=== PATIENT | male | born 1940 | race Caucasian/White ===

== ENCOUNTER 2020-01-09 21:32 | Emergency (ER) | payer MEDICARE, OTHER ==
[~2020-01-09] VITALS: Ht 177.8 cm; Wt 91.3 kg
[2020-01-09] MEDS ORDERED: LUTE2000 PO (21:48)
[2020-01-09] MEDS ORDERED: FENO160T10 PO (21:48)
[2020-01-09] MEDS ORDERED: FLOM0.4C39 PO (21:48)
[2020-01-09] MEDS ORDERED: ELIQ2.5T PO (21:48)
[2020-01-09] MEDS ORDERED: LOPR1TAB6 PO (21:48)
[2020-01-09] MEDS ORDERED: TRUL0.5I SC (21:48)
[2020-01-09] MEDS ORDERED: NEXI40CA PO (21:48)
[2020-01-09] MEDS ORDERED: vitamin D PO (21:48)
[2020-01-09] MEDS ORDERED: GNP250TA9 PO (21:48)
[2020-01-09] MEDS ORDERED: GLIP5TAB8 PO (21:48)
[2020-01-09] MEDS ORDERED: PANT40TA29 PO (21:48)
[2020-01-09] MEDS ORDERED: ALLO10TA PO (21:48)
--- NOTE | 2020-01-09 23:11 | REPVR ---
PROCEDURE INFORMATION: Exam: CT Head Without Contrast Exam date and time: 01/09/2020 10:47 PM Age: 79 years old Clinical indication: Dizziness; Additional info: Ting TECHNIQUE: Imaging protocol: Computed tomography of the head without contrast. Radiation optimization: All CT scans at this facility use at least one of these dose optimization techniques: automated exposure control; mA and/or kV adjustment per patient size (includes targeted exams where dose is matched to clinical indication); or iterative reconstruction. COMPARISON: CT Head without contrast 2016-01-31 11:42 FINDINGS: Brain: Diffuse mild cerebral age related volume loss. Mild patchy low attenuation in the white matter compatible with mild chronic small vessel ischemic disease. No midline shift, mass, fluid collection, or evidence of hemorrhage. Ventricles: Ventricular enlargement proportional to volume loss. Bones/joints: Unremarkable. No acute fracture. Sinuses: Visualized sinuses are unremarkable. No fluid levels. Mastoid air cells: Visualized mastoid air cells are well aerated. Soft tissues: Unremarkable. IMPRESSION: Mild involutional changes, no acute intracranial abnormality. Electronically signed by: Orville Willis On 01/09/2020 23:11:08 PM
[2020-01-10 00:34] LABS: BASO % 0.3 % (0.0-1.0); EOS # 0.1 10^3/uL (0.0-0.5); EOS % 1.1 % (0.0-3.0); HEMATOCRIT 41.8 % (42.0-52.0); LYMPH # 1.6 10^3/uL (1.5-5.0); LYMPH % 16.4 % (24.0-44.0); MEAN CORPUSCULAR HEMOGLOBIN 29.9 pg (27.0-33.0); MEAN CORPUSCULAR HGB CONC 33.5 g/dl (32.0-36.5); MEAN CORPUSCULAR VOLUME 89.1 fl (80.0-96.0); MONO # 0.7 10^3/uL (0.0-0.8); MONO % 6.8 % (0.0-5.0); NEUTROPHILS # 7.5 10^3/uL (1.5-8.5); NEUTROPHILS % 74.9 % (36.0-66.0); PLATELET COUNT, AUTOMATED 212 10^3/uL (150-450); RED BLOOD COUNT 4.69 10^6/uL (4.30-6.10)
[2020-01-10] MEDS ORDERED: MECLIZINE 25 MG TABLET PO ONE (01:15)
[2020-01-10 01:35] LABS: BLOOD UREA NITROGEN 39 MG/DL (7-18); CALCIUM LEVEL 9.3 MG/DL (8.8-10.2); CARBON DIOXIDE LEVEL 24 MEQ/L (21-32); CHLORIDE LEVEL 107 MEQ/L (98-107); CK-MB VALUE MASS 2.4 NG/ML (<3.6); CPK CREATINE PHOSPHOKINASE 61 U/L (39-308); CREATININE FOR GFR 2.16 MG/DL (0.70-1.30); GLOMERULAR FILTRATION RATE 31.6 (>42); GLUCOSE, FASTING 132 MG/DL (70-100); MB/CK RELATIVE INDEX 3.93 (< OR =4); POTASSIUM SERUM 4.3 MEQ/L (3.5-5.1); SODIUM LEVEL 138 MEQ/L (136-145); TROPONIN I < 0.02 NG/ML (< 0.10)
[2020-01-10] MEDS ORDERED: MECL1TAB31 PO (02:09)
[2020-01-10 03:00] VITALS: BP 137/76
--- NOTE | 2020-01-26 16:52 | ECGEPIP ---
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
== END 2020-01-10 03:14 | disposition home or self-care (01) ==
LOC: M ED 21:32
DX: R42 Dizziness and giddiness (principal); I11.9 Hypertensive heart disease without heart failure; I48.91 Unspecified atrial fibrillation; E11.9 Type 2 diabetes mellitus without complications; E78.5 Hyperlipidemia, unspecified; K21.9 Gastro-esophageal reflux disease without esophagitis; R01.1 Cardiac murmur, unspecified; N40.0 Benign prostatic hyperplasia without lower urinary tract symptoms; N28.9 Disorder of kidney and ureter, unspecified; Z95.5 Presence of coronary angioplasty implant and graft; I48.92 Unspecified atrial flutter; Z95.0 Presence of cardiac pacemaker

== ENCOUNTER 2021-09-08 01:10 | Inpatient (IN) | payer MEDICARE, OTHER ==
[~2021-09-08] VITALS: Ht 177.8 cm; Wt 80.5 kg
[~2021-09-08 01:10] MED LIST: ALLO10TA PO; ELIQ2.5T PO; FENO160T10 PO; FLOM0.4C39 PO; GLIP5TAB8 PO; GNP250TA9 PO; LOPR1TAB6 PO; LUTE2000 PO; MECL1TAB31 PO; NEXI40CA PO; NYST1POW9 TOP; PANT40TA29 PO; PLAV1TAB2 PO; TRUL0.5I SC; vitamin D PO
[2021-09-08 02:16] LABS: BASO # 0.1 10^3/uL (0.0-0.2); BASO % 0.4 % (0.0-1.0); EOS # 0.1 10^3/uL (0.0-0.5); EOS % 0.3 % (0.0-3.0); HEMATOCRIT 47.3 % (42.0-52.0); HEMOGLOBIN 14.6 g/dl (13.5-17.5); LYMPH # 1.7 10^3/uL (1.5-5.0); LYMPH % 9.6 % (24.0-44.0); MEAN CORPUSCULAR HEMOGLOBIN 27.9 pg (27.0-33.0); MEAN CORPUSCULAR HGB CONC 30.9 g/dl (32.0-36.5); MEAN CORPUSCULAR VOLUME 90.3 fl (80.0-96.0); MONO % 11.5 % (2.0-8.0); NEUTROPHILS # 13.6 10^3/uL (1.5-8.5); NEUTROPHILS % 77.5 % (36.0-66.0); PLATELET COUNT, AUTOMATED 200 10^3/uL (150-450); RED BLOOD COUNT 5.24 10^6/uL (4.30-6.10); WHITE BLOOD COUNT 17.5 10^3/uL (4.0-10.0)
[2021-09-08 02:41] LABS: ALBUMIN 2.2 GM/DL (3.2-5.2); BILIRUBIN,DIRECT 0.8 MG/DL (0.0-0.2); BILIRUBIN,TOTAL 1.3 MG/DL (0.2-1.0); CALCIUM LEVEL 8.5 MG/DL (8.8-10.2); CREATININE FOR GFR 1.92 MG/DL (0.70-1.30); GLOMERULAR FILTRATION RATE 36.1 (>42); POTASSIUM SERUM 5.7 MEQ/L (3.5-5.1); TOTAL PROTEIN 5.9 GM/DL (6.4-8.2)
[2021-09-08 02:46] LABS: CK-MB VALUE MASS < 1.0 NG/ML (<3.6); CPK CREATINE PHOSPHOKINASE 381 U/L (39-308); MB/CK RELATIVE INDEX 0.26 (< OR =4)
[2021-09-08] MEDS ORDERED: ONDANSETRON 4MG/2ML VIAL IV ONE (04:35)
[2021-09-08] MEDS ORDERED: MORPHINE 4 MG/ML 1ML VIAL/SYRINGE IV ONE (04:35)
[2021-09-08 05:15] LABS: BASO % 0.2 % (0.0-1.0); EOS % 0.2 % (0.0-3.0); HEMATOCRIT 41.3 % (42.0-52.0); LYMPH # 1.4 10^3/uL (1.5-5.0); MEAN CORPUSCULAR HEMOGLOBIN 27.5 pg (27.0-33.0); MEAN CORPUSCULAR HGB CONC 31.5 g/dl (32.0-36.5); MEAN CORPUSCULAR VOLUME 87.3 fl (80.0-96.0); MONO % 9.4 % (2.0-8.0); NEUTROPHILS # 14.5 10^3/uL (1.5-8.5); NEUTROPHILS % 81.6 % (36.0-66.0); PLATELET COUNT, AUTOMATED 210 10^3/uL (150-450); RED BLOOD COUNT 4.73 10^6/uL (4.30-6.10); WHITE BLOOD COUNT 17.7 10^3/uL (4.0-10.0)
[2021-09-08] MEDS ORDERED: cefTRIAXone SOD 1 GM in D5W MINI-BAG PLUS 50 ML IV ONE ×2 (05:20→08:00)
[2021-09-08] MEDS ORDERED: NS 1,000 ML IV ONE (05:20)
[2021-09-08 05:41] LABS: ALBUMIN 2.1 GM/DL (3.2-5.2); BILIRUBIN,TOTAL 1.4 MG/DL (0.2-1.0); CALCIUM LEVEL 8.6 MG/DL (8.8-10.2); CREATININE FOR GFR 1.74 MG/DL (0.70-1.30); GLOMERULAR FILTRATION RATE 40.5 (>42); MONO # 1.7 10^3/uL (0.0-0.8); POTASSIUM SERUM 5.3 MEQ/L (3.5-5.1); TOTAL PROTEIN 5.7 GM/DL (6.4-8.2)
[2021-09-08] MEDS ORDERED: HumaLOG INSULIN (NovoLOG) PER UNIT SC SCH (06:00)
[2021-09-08] MEDS ORDERED: METO1TAB87 PO (06:20)
[2021-09-08] MEDS ORDERED: SIMV20TA22 PO (06:20)
[2021-09-08] MEDS ORDERED: HOME MED LIST COMPLETE! XX SCH (06:25)
[2021-09-08] MEDS ORDERED: NS 1,000 ML IV SCH ×2 (06:50→22:40)
[2021-09-08] MEDS ORDERED: THIAMINE 200MG 2ML VIAL IM ONE (07:00)
[2021-09-08] MEDS ORDERED: DEXTROSE 50% 50 ML SYRINGE IV PRN (07:10)
[2021-09-08] MEDS ORDERED: ALBUTEROL SULFATE 2.5 MG/0.5 ML INH NEB SOLN NEB PRN (07:10)
[2021-09-08] MEDS ORDERED: GLUCOSE 4GM CHEW TABLET PO PRN (07:10)
[2021-09-08] MEDS ORDERED: GLUCAGON INJ 1MG VIAL SC PRN (07:10)
[2021-09-08 09:22] VITALS: BP 119/65
[2021-09-08] MEDS ORDERED: cefTRIAXone SOD 1 GM in D5W MINI-BAG PLUS 50 ML IV SCH (10:00)
[2021-09-08 10:52] LABS: APPEARANCE, URINE HAZY (CLEAR); BACTERIA, URINE AUTO NEGATIVE (NEGATIVE); BILIRUBIN, URINE AUTO NEGATIVE (NEGATIVE); BLOOD, URINE BLOOD NEGATIVE (NEGATIVE); COLOR, URINE AMBER (YELLOW); GLUCOSE, URINE (UA) AUTO NEGATIVE (NEGATIVE); KETONE, URINE AUTO NEGATIVE (NEGATIVE); LEUKOCYTE ESTERASE, URINE AUTO NEGATIVE (NEGATIVE); MUCUS, URINE SMALL (NEGATIVE); NITRITE, URINE AUTO NEGATIVE (NEGATIVE); PROTEIN, URINE AUTO NEGATIVE (NEGATIVE); RBC, URINE AUTO 2 /HPF (0-3); SPECIFIC GRAVITY URINE AUTO 1.023 (1.002-1.035); SQUAMOUS EPITHELIAL CELL UR AU 0 /HPF (0-6); UROBILINOGEN, URINE AUTO 0.2 mg/dL (0.0-2.0); WBC, URINE AUTO 2 /HPF (0-3)
[2021-09-08] MEDS: CLOPIDOGREL 75 MG TAB PO SCH (11:27)
[2021-09-08] MEDS: BISACODYL 10 MG SUPP PR SCH ×2 (11:29→22:02)
[2021-09-08] MEDS: LACTULOSE 20 GM/30 ML SYRUP UD PO SCH ×3 (11:30→22:09)
[2021-09-08] MEDS: HumaLOG INSULIN (NovoLOG) PER UNIT SC SCH ×2 (12:00→17:30)
[2021-09-08 14:43] VITALS: BP 132/61
[2021-09-08 15:00] VITALS: BP 141/57
[2021-09-08 20:25] VITALS: BP 103/68
[2021-09-08] MEDS ORDERED: ONDANSETRON 4MG/2ML VIAL IV PRN (21:25)
[2021-09-08] MEDS ORDERED: LORazepam 2 MG TAB PO PRN (21:25)
[2021-09-08 21:46] VITALS: BP 104/68
[2021-09-08] MEDS: THIAMINE 100 MG TAB PO SCH (22:10)
[2021-09-08] MEDS: NYSTATIN 100,000 UNITS/GM TOPICAL PWD 15 GM TOP SCH (22:10)
[2021-09-08] MEDS: HYDROMORPHONE HCL 0.5 MG/ 0.5 ML SYRINGE (J1170 PER 1) IV PRN (22:12)
[2021-09-08 22:27] LABS: MAGNESIUM LEVEL 2.5 MG/DL (1.8-2.4)
[2021-09-08] MEDS ORDERED: SODIUM CHLORIDE 0.9% 1000ML IV ONE (22:35)
[2021-09-08 23:48] VITALS: BP 119/64
[2021-09-09] VITALS (12 sets, daily range): BP systolic 115–138; BP diastolic 57–89
[2021-09-09] MEDS ORDERED: RAMELTEON 8 MG TAB (ROZEREM) PO PRN
[2021-09-09] MEDS ORDERED: MORPHINE 4 MG/ML 1ML VIAL/SYRINGE IV ONE
[2021-09-09] MEDS ORDERED: CAPSAICIN 0.025% CR 60 GM TOP PRN
[2021-09-09] MEDS ORDERED: PROCHLORPERAZINE 10MG/2ML VIAL (J0780 PER 1) IV PRN (00:05)
[2021-09-09] MEDS: LIDOCAINE 5% (LIDODERM) PATCH TD SCH ×2 (00:21→21:01)
[2021-09-09] MEDS ORDERED: SODIUM CHLORIDE 0.9% 1000ML IV ONE ×2 (00:35→01:00)
[2021-09-09] MEDS ORDERED: PIPERACILLIN/TAZOBACTAM SOD 2.25 GM in D5W MINI-BAG PLUS 50 ML IV SCH (00:35)
[2021-09-09] MEDS ORDERED: ACETAMINOPHEN *IV* 650 MG in IV 1 EA IV ONE (02:00)
[2021-09-09] MEDS ORDERED: MORPHINE 2 MG/ML 1ML VIAL IV ONE (02:00)
[2021-09-09] MEDS ORDERED: IPRATROPIUM 0.5MG/ALBUTEROL 2.5MG INH SOL UD 3ML (DUONEB) NEB PRN (02:20)
[2021-09-09] MEDS: PIPERACILLIN/TAZOBACTAM SOD 2.25 GM in D5W MINI-BAG PLUS 50 ML IV SCH ×5 (02:23→21:01)
[2021-09-09] MEDS ORDERED: VANCOMYCIN HCL 1,000 MG, VIAL MATE ADAPTER 1 EACH in NS 250 ML IV ONE (03:00)
[2021-09-09] MEDS ORDERED: NS 1,000 ML IV ONE ×2 (03:45→05:00)
[2021-09-09] MEDS ORDERED: VANCOMYCIN HCL 500 MG in D5W MINI-BAG PLUS 100 ML IV ONE (04:00)
[2021-09-09 08:24] LABS: BASO % 0.2 % (0.0-1.0); HEMATOCRIT 41.8 % (42.0-52.0); HEMOGLOBIN 12.9 g/dl (13.5-17.5); LYMPH # 1.2 10^3/uL (1.5-5.0); LYMPH % 7.9 % (24.0-44.0); MEAN CORPUSCULAR HEMOGLOBIN 27.7 pg (27.0-33.0); MEAN CORPUSCULAR HGB CONC 30.9 g/dl (32.0-36.5); MEAN CORPUSCULAR VOLUME 89.9 fl (80.0-96.0); MONO # 1.4 10^3/uL (0.0-0.8); MONO % 9.4 % (2.0-8.0); NEUTROPHILS # 12.4 10^3/uL (1.5-8.5); PLATELET COUNT, AUTOMATED 237 10^3/uL (150-450); RED BLOOD COUNT 4.65 10^6/uL (4.30-6.10); WHITE BLOOD COUNT 15.1 10^3/uL (4.0-10.0)
[2021-09-09 08:35] LABS: PARTIAL THROMBOPLASTIN TIME 46.4 SECONDS (25.9-37.0)
[2021-09-09 08:38] LABS: INR 1.8; PROTHROMBIN TIME 21.3 SECONDS (12.7-14.5)
[2021-09-09 08:46] LABS: CALCIUM LEVEL 8.4 MG/DL (8.8-10.2); CREATININE FOR GFR 2.25 MG/DL (0.70-1.30); GLOMERULAR FILTRATION RATE 30.1 (>42); POTASSIUM SERUM 5.6 MEQ/L (3.5-5.1)
[2021-09-09] MEDS: CLOPIDOGREL 75 MG TAB PO SCH (09:56)
[2021-09-09] MEDS: HumaLOG INSULIN (NovoLOG) PER UNIT SC SCH ×3 (09:56→17:15)
[2021-09-09] MEDS: LACTULOSE 20 GM/30 ML SYRUP UD PO SCH ×3 (09:57→20:51)
[2021-09-09] MEDS: MULTIVITAMINS/MINERALS THERAP 1 TAB PO SCH (09:57)
[2021-09-09] MEDS: BISACODYL 10 MG SUPP PR SCH (09:57)
[2021-09-09] MEDS: THIAMINE 100 MG TAB PO SCH ×2 (09:57→21:01)
[2021-09-09] MEDS: FOLIC ACID 1 MG TAB PO SCH (09:57)
[2021-09-09] MEDS: **NOTE PATIENT COMMENT** MISC XX SCH (09:57)
[2021-09-09] MEDS: NYSTATIN 100,000 UNITS/GM TOPICAL PWD 15 GM TOP SCH ×2 (09:57→21:03)
[2021-09-09] MEDS: NS 1,000 ML IV SCH (12:22)
[2021-09-09] MEDS: traMADol 50 MG TAB PO PRN (14:49)
[2021-09-09] MEDS: HYDROMORPHONE HCL 0.5 MG/ 0.5 ML SYRINGE (J1170 PER 1) IV PRN (17:22)
[2021-09-09] MEDS ORDERED: PILL CUTTER 1 EACH XX PRN (18:25)
[2021-09-09] MEDS ORDERED: VANCOMYCIN HCL 1,000 MG, VIAL MATE ADAPTER 1 EACH in NS 250 ML IV SCH (21:00)
[2021-09-10] VITALS (10 sets, daily range): BP systolic 112–129; BP diastolic 49–71
[2021-09-10] MEDS: HYDROMORPHONE HCL 0.5 MG/ 0.5 ML SYRINGE (J1170 PER 1) IV PRN (00:54)
[2021-09-10] MEDS: PIPERACILLIN/TAZOBACTAM SOD 2.25 GM in D5W MINI-BAG PLUS 50 ML IV SCH ×4 (02:06→20:57)
[2021-09-10] MEDS: NS 1,000 ML IV SCH ×2 (02:06→17:06)
[2021-09-10] MEDS ORDERED: METOPROLOL TART 25 MG TABLET PO ONE (05:00)
[2021-09-10] MEDS: **NOTE PATIENT COMMENT** MISC XX SCH (07:19)
[2021-09-10] MEDS: HumaLOG INSULIN (NovoLOG) PER UNIT SC SCH ×3 (07:30→17:59)
[2021-09-10 07:50] LABS: BASO % 0.1 % (0.0-1.0); EOS % 0.2 % (0.0-3.0); HEMATOCRIT 38.4 % (42.0-52.0); HEMOGLOBIN 12.1 g/dl (13.5-17.5); LYMPH # 0.8 10^3/uL (1.5-5.0); LYMPH % 6.3 % (24.0-44.0); MEAN CORPUSCULAR HEMOGLOBIN 27.8 pg (27.0-33.0); MEAN CORPUSCULAR HGB CONC 31.5 g/dl (32.0-36.5); MEAN CORPUSCULAR VOLUME 88.1 fl (80.0-96.0); MONO # 1.4 10^3/uL (0.0-0.8); NEUTROPHILS # 10.3 10^3/uL (1.5-8.5); NEUTROPHILS % 81.8 % (36.0-66.0); PLATELET COUNT, AUTOMATED 212 10^3/uL (150-450); RED BLOOD COUNT 4.36 10^6/uL (4.30-6.10); WHITE BLOOD COUNT 12.6 10^3/uL (4.0-10.0)
[2021-09-10 08:14] LABS: ALBUMIN 2.1 GM/DL (3.2-5.2); BILIRUBIN,TOTAL 1.4 MG/DL (0.2-1.0); CALCIUM LEVEL 8.4 MG/DL (8.8-10.2); CREATININE FOR GFR 2.25 MG/DL (0.70-1.30); GLOMERULAR FILTRATION RATE 30.1 (>42); MAGNESIUM LEVEL 2.6 MG/DL (1.8-2.4); POTASSIUM SERUM 5.2 MEQ/L (3.5-5.1); TOTAL PROTEIN 5.2 GM/DL (6.4-8.2)
[2021-09-10] MEDS: LACTULOSE 20 GM/30 ML SYRUP UD PO SCH ×3 (08:40→20:59)
[2021-09-10] MEDS: MULTIVITAMINS/MINERALS THERAP 1 TAB PO SCH (08:54)
[2021-09-10] MEDS: CLOPIDOGREL 75 MG TAB PO SCH (08:54)
[2021-09-10] MEDS: NYSTATIN 100,000 UNITS/GM TOPICAL PWD 15 GM TOP SCH ×2 (08:54→21:00)
[2021-09-10] MEDS: FOLIC ACID 1 MG TAB PO SCH (08:54)
[2021-09-10] MEDS: THIAMINE 100 MG TAB PO SCH ×2 (08:54→20:57)
[2021-09-10] MEDS ORDERED: SALIVA SUBSTITUTE(MOUTHKOTE) BTL MT PRN (15:10)
[2021-09-10 17:10] LABS: ASCITES FL COLOR PALE YELLOW (COLORLESS); SOURCE, BODY FLUID ASCITES
[2021-09-10 17:11] LABS: APPEARANCE, BODY FLUID CLEAR (CLEAR)
[2021-09-10 17:23] LABS: LDH, BODY FLUID 444 U/L (NOT ESTABLISHED); SOURCE, BODY FLUID ALBUMIN PERITONEAL; SOURCE, BODY FLUID LDH PERITONEAL
[2021-09-10] MEDS: LIDOCAINE 5% (LIDODERM) PATCH TD SCH (20:58)
[2021-09-11] MEDS: PIPERACILLIN/TAZOBACTAM SOD 2.25 GM in D5W MINI-BAG PLUS 50 ML IV SCH ×2 (02:03→08:56)
[2021-09-11 03:56] VITALS: BP 114/58
[2021-09-11 05:01] VITALS: BP 115/58
[2021-09-11] MEDS: NS 1,000 ML IV SCH (05:05)
[2021-09-11 05:54] VITALS: BP 115/58
[2021-09-11] MEDS: HumaLOG INSULIN (NovoLOG) PER UNIT SC SCH ×2 (07:30→08:57)
[2021-09-11 08:03] LABS: BASO % 0.1 % (0.0-1.0); EOS % 0.2 % (0.0-3.0); HEMATOCRIT 38.2 % (42.0-52.0); HEMOGLOBIN 11.9 g/dl (13.5-17.5); LYMPH # 0.8 10^3/uL (1.5-5.0); LYMPH % 6.7 % (24.0-44.0); MEAN CORPUSCULAR HGB CONC 31.2 g/dl (32.0-36.5); MEAN CORPUSCULAR VOLUME 86.6 fl (80.0-96.0); MONO # 1.3 10^3/uL (0.0-0.8); MONO % 11.1 % (2.0-8.0); NEUTROPHILS # 9.7 10^3/uL (1.5-8.5); NEUTROPHILS % 81.3 % (36.0-66.0); PLATELET COUNT, AUTOMATED 203 10^3/uL (150-450); RED BLOOD COUNT 4.41 10^6/uL (4.30-6.10); WHITE BLOOD COUNT 11.9 10^3/uL (4.0-10.0)
[2021-09-11 08:32] LABS: CALCIUM LEVEL 8.3 MG/DL (8.8-10.2); CREATININE FOR GFR 2.2 MG/DL (0.70-1.30); GLOMERULAR FILTRATION RATE 30.9 (>42); POTASSIUM SERUM 4.6 MEQ/L (3.5-5.1)
[2021-09-11] MEDS: LACTULOSE 20 GM/30 ML SYRUP UD PO SCH (08:39)
[2021-09-11] MEDS: CLOPIDOGREL 75 MG TAB PO SCH (08:57)
[2021-09-11] MEDS: MULTIVITAMINS/MINERALS THERAP 1 TAB PO SCH (08:57)
[2021-09-11] MEDS: THIAMINE 100 MG TAB PO SCH (08:58)
[2021-09-11] MEDS: **NOTE PATIENT COMMENT** MISC XX SCH (08:58)
[2021-09-11] MEDS: FOLIC ACID 1 MG TAB PO SCH (08:58)
[2021-09-11] MEDS: NYSTATIN 100,000 UNITS/GM TOPICAL PWD 15 GM TOP SCH ×2 (08:58→20:34)
[2021-09-11] MEDS: HYDROMORPHONE HCL 0.5 MG/ 0.5 ML SYRINGE (J1170 PER 1) IV PRN (10:47)
[2021-09-11 14:00] VITALS: BP 139/65
[2021-09-11] MEDS ORDERED: LORazepam 1 MG TAB PO PRN (14:20)
[2021-09-11] MEDS ORDERED: ATROPINE SULFATE 1% OP SOLN 2 ML BTL SL PRN (14:20)
[2021-09-11] MEDS: traMADol 50 MG TAB PO PRN (16:29)
[2021-09-11] MEDS: MORPHINE 10MG/0.5ML ORAL CONCENTRATE SOLUTION U/D SL PRN (17:55)
[2021-09-11] MEDS: LIDOCAINE 5% (LIDODERM) PATCH TD SCH (20:33)
[2021-09-12] MEDS: **NOTE PATIENT COMMENT** MISC XX SCH (09:54)
[2021-09-12] MEDS: MORPHINE 10MG/0.5ML ORAL CONCENTRATE SOLUTION U/D SL PRN (09:59)
[2021-09-12] MEDS: NYSTATIN 100,000 UNITS/GM TOPICAL PWD 15 GM TOP SCH ×2 (09:59→20:10)
[2021-09-12] MEDS: LIDOCAINE 5% (LIDODERM) PATCH TD SCH (20:09)
[2021-09-13] MEDS: traMADol 50 MG TAB PO PRN (00:57)
[2021-09-13] MEDS: MORPHINE 10MG/0.5ML ORAL CONCENTRATE SOLUTION U/D SL PRN ×2 (03:02→07:48)
[2021-09-13 06:35] LABS: BASO # 0.1 10^3/uL (0.0-0.2); BASO % 0.5 % (0.0-1.0); EOS % 0.2 % (0.0-3.0); HEMATOCRIT 42.1 % (42.0-52.0); HEMOGLOBIN 13.5 g/dl (13.5-17.5); LYMPH # 1.5 10^3/uL (1.5-5.0); MEAN CORPUSCULAR HEMOGLOBIN 27.7 pg (27.0-33.0); MEAN CORPUSCULAR HGB CONC 32.1 g/dl (32.0-36.5); MEAN CORPUSCULAR VOLUME 86.4 fl (80.0-96.0); MONO # 1.3 10^3/uL (0.0-0.8); MONO % 7.4 % (2.0-8.0); NEUTROPHILS # 13.8 10^3/uL (1.5-8.5); NEUTROPHILS % 81.1 % (36.0-66.0); PLATELET COUNT, AUTOMATED 281 10^3/uL (150-450); RED BLOOD COUNT 4.87 10^6/uL (4.30-6.10); WHITE BLOOD COUNT 16.9 10^3/uL (4.0-10.0)
[2021-09-13 07:02] LABS: CALCIUM LEVEL 8.4 MG/DL (8.8-10.2); CREATININE FOR GFR 2.87 MG/DL (0.70-1.30); GLOMERULAR FILTRATION RATE 22.7 (>42); POTASSIUM SERUM 5.5 MEQ/L (3.5-5.1)
[2021-09-13] MEDS: **NOTE PATIENT COMMENT** MISC XX SCH (07:48)
[2021-09-13] MEDS: NYSTATIN 100,000 UNITS/GM TOPICAL PWD 15 GM TOP SCH (07:48)
[2021-09-13] MEDS ORDERED: ONDA4TAB6 SL (12:28)
[2021-09-13] MEDS ORDERED: MORP1SOL5 PO (12:28)
[2021-09-13] MEDS ORDERED: HYOS125TA PO (12:28)
[2021-09-13] MEDS ORDERED: NYST10006 TOP (12:28)
[2021-09-13] MEDS ORDERED: ATIV1TAB10 PO (12:28)
[2021-09-13] MEDS ORDERED: MOUKOT60 MT (12:28)
[2021-09-13] MEDS ORDERED: ceFAZolin 2 GM/D5W 50 ML IV BAG (J0690 PER 500MG) As Ordered ONE (13:31)
[2021-09-13] MEDS ORDERED: diphenhydrAMINE 50MG/ML VIAL (J1200) As Ordered ONE (13:31)
[2021-09-13] MEDS ORDERED: fentaNYL 100 MCG/2 ML INJECTION As Ordered ONE (13:32)
[2021-09-13] MEDS ORDERED: ISOVUE-300 61% 50ML VIAL As Ordered ONE (13:32)
[2021-09-13] MEDS ORDERED: LIDOCAINE 1% MDV 20ML VIAL As Ordered ONE (13:33)
[2021-09-13] MEDS ORDERED: MIDAZOLAM INJ 2MG/2ML VIAL (J2250 PER 1MG) As Ordered ONE (13:33)
[2021-09-13] MEDS ORDERED: ceFAZolin SOD 2 GM in IV 1 EA IV ONE (14:10)
[2021-09-13 14:40] VITALS: BP 146/67
== END 2021-09-13 16:55 | disposition hospice, home (50) | DRG 871 ==
LOC: EDBD 01:10 → M ED 01:10 → M ED INP 06:48 → ENRESERV 08:00 → M ICU 09:11 → ENRESERV 10:51 → M MSPAV 14:45
PROVIDERS: ADMIT Internal Medicine; ATTEND Internal Medicine Nephrology
PROC: 30233J1 Transfusion of Nonautologous Serum Albumin into Peripheral Vein, Percutaneous Approach (ICD-10-PCS; 2021-09-09)
PROC: 0W9G3ZX Drainage of Peritoneal Cavity, Percutaneous Approach, Diagnostic (ICD-10-PCS; principal; 2021-09-10 15:00)
PROC: 0W9G30Z Drainage of Peritoneal Cavity with Drainage Device, Percutaneous Approach (ICD-10-PCS; 2021-09-13)
PROC: BW11ZZZ Fluoroscopy of Abdomen and Pelvis (ICD-10-PCS; 2021-09-13)
DX: A41.9 Sepsis, unspecified organism (principal); G93.41 Metabolic encephalopathy; J18.9 Pneumonia, unspecified organism; K76.6 Portal hypertension; C22.0 Liver cell carcinoma; R18.8 Other ascites; E87.2 Acidosis; N17.9 Acute kidney failure, unspecified; J90 Pleural effusion, not elsewhere classified; Z66 Do not resuscitate; K72.90 Hepatic failure, unspecified without coma; Z51.5 Encounter for palliative care; I35.0 Nonrheumatic aortic (valve) stenosis; E11.22 Type 2 diabetes mellitus with diabetic chronic kidney disease; K21.9 Gastro-esophageal reflux disease without esophagitis; E78.00 Pure hypercholesterolemia, unspecified; I48.91 Unspecified atrial fibrillation; K74.60 Unspecified cirrhosis of liver; F10.20 Alcohol dependence, uncomplicated; N40.0 Benign prostatic hyperplasia without lower urinary tract symptoms; E87.5 Hyperkalemia; N18.30 Chronic kidney disease, stage 3 unspecified; K80.20 Calculus of gallbladder without cholecystitis without obstruction; R13.10 Dysphagia, unspecified; I12.9 Hypertensive chronic kidney disease with stage 1 through stage 4 chronic kidney disease, or unspecified chronic kidney disease; Z95.5 Presence of coronary angioplasty implant and graft; E79.0 Hyperuricemia without signs of inflammatory arthritis and tophaceous disease; Z79.01 Long term (current) use of anticoagulants; Z95.0 Presence of cardiac pacemaker; Z95.2 Presence of prosthetic heart valve; Z79.02 Long term (current) use of antithrombotics/antiplatelets; Z87.891 Personal history of nicotine dependence; Z79.899 Other long term (current) drug therapy